=== PATIENT | male | born 1955 | race Caucasian/White ===

== ENCOUNTER 2017-11-29 09:00 | Emergency (ER) | payer OTHER ==
--- NOTE | 2017-11-29 09:50 | EDM.PDOC ---
ED HPI GENERAL MEDICAL PROBLEM - General Chief Complaint: Abdominal Pain Stated Complaint: SENT BY CLINIC- AORTIC ANEURYSM Time Seen by Provider: 11/29/17 09:23 Source of Information: Reports: Patient History Limitations: Reports: No Limitations - History of Present Illness INITIAL COMMENTS - FREE TEXT/NARRATIVE: The patient states that he was diagnosed with a AAA by MRI on 11/09/2017. He does not recall the diameter found, but a subsequent ultrasound of the aorta on 11/27/2017 found the diameter to be 7 cm. The patient was then seen in [place] on 11/28/2017, where a CT scan found the diameter to be over [address] Marinelli, the vascular surgeon, recommended elective AAA repair with a customized graft, which is currently being manufactured. The patient is scheduled to go to the OR on 12/10/2017. The patient states that yesterday, 11/28/2017, after he was seen in [place], he fell approximately 5 feet onto his back on gravel. He has chronic back pain, made worse by the fall. He is under the care of a pain management physician, who is currently prescribing a topical cream for his pain. He also reports pain in his chest and abdomen - the patient points with one finger to a discrete area a few centimeters above his umbilicus - last night, worse this morning. It is a dull ache. It is constant, although made worse if he exhales. He has not noticed any difference with bodily position. No recent nausea, vomiting, constipation, or diarrhea. No urinary symptoms. The patient reported this to either Dr. Albert's or Dr. Marinelli's nurse, who recommended that he come to the ED to make sure that he does not have a leaking or ruptured AAA. The patient's PCP is Dr. Delcid. Upper Abdominal Pain Score (Numeric/FACES): 2 - Related Data Allergies Allergy/AdvReac Type Severity Reaction Status Date / Time No Known Allergies Allergy Verified 11/29/17 09:10 Past Medical History HEENT History: Reports: Allergic Rhinitis, Impaired Vision Cardiovascular History: Reports: Aneurysm (AAA), High Cholesterol Respiratory History: Reports: Sleep Apnea (nightly CPAP 19) Musculoskeletal History: Reports: Back Pain, Chronic, Osteoarthritis Psychiatric History: Reports: Anxiety Endocrine/Metabolic History: Reports: Obesity/BMI 30+ - Past Surgical History HEENT Surgical History: Reports: Oral Surgery (Uvuloplasty. Mandible plate.), Tonsillectomy GI Surgical History: Reports: Colonoscopy Musculoskeletal Surgical History: Reports: Other (See Below) Other Musculoskeletal Surgeries/Procedures:: Knee surgery and neck surgery Social & Family History - Tobacco Use Smoking Status *Q: Former Smoker Years of Tobacco use: 33 Packs/Tins Daily: 1 Month/Year Tobacco Last Used: Quit 2003 - Alcohol Use Alcohol Use History: No - Recreational Drug Use Recreational Drug Use: No - Living Situation & Occupation Living situation: Reports: , with Spouse Occupation: Employed (Maintenance) ED ROS GENERAL - Review of Systems Review Of Systems: ROS reveals no pertinent complaints other than HPI. ED EXAM, GENERAL - Physical Exam Exam: See Below Exam Limited By: No Limitations General Appearance: Alert, WD/WN, No Apparent Distress Eye Exam: Bilateral Eye: Normal Inspection Ears: Normal External Exam, Hearing Grossly Normal Nose: Normal Inspection, No Blood Throat/Mouth: Normal Inspection, Normal Lips, Normal Voice, No Airway Compromise Head: Atraumatic, Normocephalic Neck: Normal Inspection, Full Range of Motion Respiratory/Chest: No Respiratory Distress, Lungs Clear, Normal Breath Sounds, No Accessory Muscle Use Cardiovascular: Normal Peripheral Pulses, Regular Rate, Rhythm, No Gallop, No JVD, No Murmur, No Rub Peripheral Pulses: 4+: Radial (L), Radial (R) GI/Abdominal: Normal Bowel Sounds, Soft, Non-Tender, No Organomegaly, No Distention, No Abnormal Bruit, No Mass, Other (Obese) (Male) Exam: Deferred Rectal (Males) Exam: Deferred Back Exam: Normal Inspection, Full Range of Motion, NT Extremities: Normal Inspection, Normal Range of Motion, No Pedal Edema, Normal Capillary Refill Neurological: Alert, Oriented, Normal Cognition, No Motor/Sensory Deficits Psychiatric: Normal Affect Skin Exam: Warm, Dry, Intact, Normal Color, No Rash Course - Vital Signs Last Recorded V/S: Last Vital Signs Temp 36.3 C 11/29/17 09:05 Pulse 73 11/29/17 09:05 Resp 16 11/29/17 09:05 BP 159/113 H 11/29/17 09:05 Pulse Ox 97 11/29/17 09:05 - Re-Assessments/Exams Free Text/Narrative Re-Assessment/Exam: 11/29/17 09:45 The patient was sent to the ED by a nurse at either Dr. Albert's or Dr. Marinelli's office, after the patient fell at work yesterday, to make sure that he did not injure his AAA. On examination, the patient's abdomen is obese, soft , nontender, with normoactive bowel sounds, findings we would not expect if he had a leaking AAA. Clinically, I do not suspect a leaking AAA, however, in order to be certain, one would need to perform a CT scan of the abdomen and pelvis, which was offered to the patient. He declined, as he does not personally believe that he injured his AAA, either. Departure - Departure Time of Disposition: 09:47 Disposition: Home, Self-Care 01 Condition: Good Clinical Impression: Fall, AAA (abdominal aortic aneurysm) - Discharge Information Instructions: Abdominal Aortic Aneurysm Referrals: Vickey Delcid MD [Primary Care Provider] - Daniele Marinelli MD [Ordering Only Provider] - Forms: ED Department Discharge, ED Return to Work/School Form Additional Instructions: You were seen in the emergency room after falling at work yesterday, 11/28/2017, for evaluation of your AAA. On examination, there are no findings concerning for a leaking or ruptured AAA. A CT scan of the abdomen and pelvis was offered, but declined. You are being sent home with a note for work for light duty until you can undergo your AAA graft on 12/10/2017. If any other problems, please do not hesitate to return to the ER.
== END 2017-11-29 10:15 | disposition home or self-care (01) ==
LOC: JD.ED 09:00
DX: I71.4 Abdominal aortic aneurysm, without rupture (principal); E78.00 Pure hypercholesterolemia, unspecified; E66.9 Obesity, unspecified; W19.XXXA Unspecified fall, initial encounter; Z87.891 Personal history of nicotine dependence; Y99.0 Civilian activity done for income or pay; Z68.32 Body mass index [BMI] 32.0-32.9, adult
CPT/HCPCS: 99284

== ENCOUNTER 2018-02-07 23:33 | Emergency (ER) | payer OTHER ==
[2018-02-08] MEDS ORDERED: Lidocaine 1% 10 ML MDV INJECT ONE (00:12)
--- NOTE | 2018-02-08 00:13 | EDM.PDOC ---
ED HPI GENERAL MEDICAL PROBLEM - General Chief Complaint: Head Injury Stated Complaint: FELL OUT OF BED AND GASHED HEAD Time Seen by Provider: 02/08/18 00:11 Source of Information: Reports: Patient History Limitations: Reports: No Limitations - History of Present Illness INITIAL COMMENTS - FREE TEXT/NARRATIVE: 62-year-old male presents the ED with a closed head injury. This occurred while he was asleep. He reports this is happened twice previously in the last year and a half weeks parents is a bad dream and suddenly ends up falling out of bed. He remembers once reaching out for something and then falling off the bed. Tonight he awoke on the floor. It appears that he struck his left frontal scalp in the midline on something sharp like a handle of the night table. His heard him fall in turn the lights on immediately. Took a while for her to get him up and standing but he could walk and talk within 2-3 minutes of the injury. There was no evidence that he has suffered a seizure. Of note all 3 times that this is occurred it's been when he's not using his CPAP machine. It may be that he is suffering inspiratory distress with a boost of adrenaline causing him to suddenly awakened from sleep and falling. At any rate he has a deep Y-shaped laceration to his frontal scalp that is actively bleeding. It will require lab suture repair. He states his tetanus toxoid is up-to-date. He denies any other injuries. States he landed on his chest but has no rib pain arm pain etc. He has minimal headache at this time no nausea or vomiting. He does take a baby aspirin once daily Onset: Today Onset Date: 02/07/18 Onset Time: 23:20 Duration: Minutes: Location: Reports: Head Quality: Reports: Ache Severity: Mild Improves with: Reports: None Worsens with: Reports: None Context: Reports: Other (Reportedly fell out of bed while asleep. Struck something sharp to cause a jagged laceration and almost in a Y-shaped mid frontal scalp with active bleeding.). Denies: Activity, Exercise, Lifting, Sick Contact, Trauma Associated Symptoms: Denies: Confusion, Chest Pain, Cough, cough w sputum, Diaphoresis, Fever/Chills, Headaches, Loss of Appetite, Malaise, Nausea/Vomiting , Rash, Seizure, Shortness of Breath, Syncope Treatments AUTOMOTIVE SERVICE WRITER: Reports: Other (see below) (None.) Head Pain Score (Numeric/FACES): 7 - Related Data Allergies Allergy/AdvReac Type Severity Reaction Status Date / Time mold Allergy Intermediate Rash Verified 02/07/18 23:48 hydrocodone Allergy Drowsiness Verified 02/07/18 23:49 Home Meds: Home Meds Aspirin [Halfprin] 1 tab PO DAILY 02/08/18 [History] Past Medical History HEENT History: Reports: Allergic Rhinitis, Impaired Vision Cardiovascular History: Reports: Aneurysm, High Cholesterol Other Cardiovascular History: AAA Respiratory History: Reports: Sleep Apnea (Uses his CPAP machine most nights.) Musculoskeletal History: Reports: Back Pain, Chronic, Osteoarthritis Other Musculoskeletal History: Degenerative arthritis in spine Neurological History: Reports: Migraines Psychiatric History: Reports: Anxiety Endocrine/Metabolic History: Reports: Obesity/BMI 30+ - Past Surgical History HEENT Surgical History: Reports: Oral Surgery, Tonsillectomy Cardiovascular Surgical History: Reports: AAA Repair, Coronary Artery Stent GI Surgical History: Reports: Colonoscopy Musculoskeletal Surgical History: Reports: Other (See Below) Other Musculoskeletal Surgeries/Procedures:: Knee surgery and neck surgery Social & Family History - Tobacco Use Smoking Status *Q: Never Smoker - Caffeine Use Caffeine Use: Reports: None - Recreational Drug Use Recreational Drug Use: No - Living Situation & Occupation Living situation: Reports: , with Spouse Occupation: Employed (Maintenance) ED ROS GENERAL - Review of Systems Review Of Systems: See Below Constitutional: Denies: Fever, Chills, Malaise, Weakness, Fatigue, Decreased Appetite, Weight Loss HEENT: Denies: Glasses, Hearing Loss, Nosebleed, Nose Pain, Rhinitis, Sinus Problem, Throat Pain, Throat Swelling, Vertigo Respiratory: Reports: Other (Has known sleep apnea syndrome and is supposed to be using for sleep CPAP sheen every night but often goes without. Snores badly. His platelet a uvuloplasty and also chin lift etc. without success). Denies: Shortness of Breath Cardiovascular: Reports: No Symptoms Endocrine: Reports: No Symptoms GI/Abdominal: Reports: No Symptoms : Reports: Frequency, Other (Has known BPH.) Musculoskeletal: Reports: Back Pain, Joint Pain (Knees and hips at times) Skin: Reports: Other (Currently has a laceration frontal scalp) Neurological: Reports: No Symptoms ED EXAM, HEAD INJURY - Physical Exam Exam: See Below Exam Limited By: No Limitations General Appearance: Alert, WD/WN, No Apparent Distress Head: Scalp Lacerations (He has a jagged Y-shaped laceration approximately 3.5 cm in total length --midfrontal scalp.), Scalp Tenderness, Active Bleeding. No : Wang's Sign, Flap, Facial Abrasions, Facial Ecchymosis, Facial Lacerations, Facial Swelling, Sinus Tenderness, Facial Tenderness Nexus Criteria: No: Painful Distraction Injuries Eyes: Bilateral Eye: Normal Inspection Throat/Mouth: Normal Inspection, Normal Lips, Normal Teeth, Normal Oropharynx Neck: Limited Range of Motion, Other (States his neck is always stiff and sore no worse than usual.) Respiratory: No Respiratory Distress, Lungs Clear, Normal Breath Sounds, No Accessory Muscle Use, Chest Non-Tender, Other (No evidence of any rib injury on firm palpation of his chest wall and sternum.) GI/Abdominal Exam: Normal Bowel Sounds, Soft, Non-Tender, No Organomegaly, No Abnormal Bruit, No Mass, Pelvis Stable Back Exam: Normal Inspection, Full Range of Motion. No: CVA Tenderness (L), CVA Tenderness (R) Extremities: Normal Inspection, Normal Range of Motion, Non-Tender, No Pedal Edema, Other (Full range of motion of his upper extremities and he could walk with no difficulty.) Neurologic: corrections sergeant II-XII nml As Tested, No Motor/Sensory Deficits, Alert, Normal Mood/Affect, Oriented x 3 Skin: Normal Color, Warm/Dry - [place] Coma Score Best Eye Response ([place]): (4) Open Spontaneously Best Verbal Response ([place]): (5) Oriented Best Motor Response ([place]): (6) Obeys Commands [place] Total: 15 Course - Vital Signs Last Recorded V/S: Last Vital Signs Temp 36.3 C 02/07/18 23:43 Pulse 70 02/07/18 23:43 Resp 18 02/07/18 23:43 BP 156/98 H 02/07/18 23:43 Pulse Ox 97 02/07/18 23:43 - Orders/Labs/Meds Meds: Medications Discontinued Medications Generic Name Dose Route Start Last Admin Trade Name Freq PRN Reason Stop Dose Admin Lidocaine HCl 10 ml 02/08/18 00:12 02/08/18 00:44 Xylocaine 1% INJECT 02/08/18 00:13 10 ml ONETIME ONE Administration - Radiology Interpretation Free Text/Narrative:: 62-year-old male presents to the ED after falling from bed from being asleep. It 's unclear what has transpired although it is happened twice in the last year. Usually can remember a bad dream that helped precipitate the fall. All 3 times it has occurred is been when he is not using his CPAP machine suggesting there is some correlation. At any rate he has suffered a closed head injury with a Y- shaped laceration mid frontal scalp. There is a very active bleeding suggesting arterial bleeding from the wound. He is on a baby aspirin once daily. His tetanus toxoid apparently is up-to-date. No other injuries were identified on examination. Plan wound was to be sutured under local anesthetic. - Re-Assessments/Exams Free Text/Narrative Re-Assessment/Exam: 02/08/18 01:05: Laceration was sutured under local anesthetic using lidocaine 1% . 15 sutures are placed in all. Arterial bleeding brought under control with sutures. Plan is to daily cleanse the wound with soap and water. Showering is okay. He'll then apply topical antibiotic such as bacitracin or Polysporin to the wound at least once daily. Sutures will need to be removed in 10 days' time. He develops any headache nausea or vomiting. Departure - Departure Time of Disposition: 01:11 Disposition: Home, Self-Care 01 Condition: Fair Clinical Impression: Central sleep apnea syndrome Laceration of scalp Qualifiers: Encounter type: initial encounter Qualified Code(s): S01.01XA - Laceration without foreign body of scalp, initial encounter Fall as cause of accidental injury at home as place of occurrence Qualifiers: Encounter type: initial encounter Qualified Code(s): W19.XXXA - Unspecified fall, initial encounter; Y92.009 - Unspecified place in unspecified non- institutional (private) residence as the place of occurrence of the external cause - Discharge Information Instructions: Laceration Care, Adult Referrals: Vickey Delcid MD [Primary Care Provider] - Forms: ED Department Discharge Additional Instructions: Evaluation in the emergency room tonight in regards to all out of bed. Presumably a bad dream occurred which created an adrenaline surge and cause you to jump up out of bed causing you to fall. Unfortunately you struck the anterior frontal aspect of your scalp with resultant Y-shaped laceration. The laceration bled extensively even in the ED indicating an arterial injury had occurred. Wound was closed under local anesthetic using lidocaine 1% and 15 stitches were placed. Treatment at home is to daily cleanse the area with soap and water. Showering is okay. Then apply topical antibiotic such as bacitracin or Polysporin to the wound once daily. Sutures will need to be removed in 10 days' time. Follow up sooner with a physician if any signs of infection develop such as redness swelling or obvious pus. Also need to return to the ED if you develop an increasing headache over the next 12-24 hours or any nausea vomiting occurs. This is felt unlikely as it appears that you struck something sharp which cause a laceration versus a severe shear force blow.
== END 2018-02-08 01:20 | disposition home or self-care (01) ==
LOC: JD.ED 23:33
DX: S01.81XA Laceration without foreign body of other part of head, initial encounter (principal); G47.31 Primary central sleep apnea; E78.00 Pure hypercholesterolemia, unspecified; F41.9 Anxiety disorder, unspecified; Z88.5 Allergy status to narcotic agent; Z79.82 Long term (current) use of aspirin; W06.XXXA Fall from bed, initial encounter
CPT/HCPCS: 12002; 12013; 99283-25

== ENCOUNTER 2025-05-05 10:50 | Emergency (ER) | payer OTHER, MEDICARE ==
[2025-05-05 11:29] LABS: BASOPHILS ABSOLUTE AUTO 0.1 K/mm3 (0.0-0.2); BASOPHILS PERCENT AUTO 0.9 % (0.0-1.0); EOSINOPHILS ABSOLUTE AUTO 0.2 K/mm3 (0.0-0.4); EOSINOPHILS PERCENT AUTO 2.8 % (0.0-6.0); IMMATURE GRAN ABSOLUTE AUTO 0.02 K/mm3 (0.00-0.05); IMMATURE GRAN PERCENT AUTO 0.3 % (0.0-0.4); LYMPHOCYTES ABSOLUTE AUTO 1.9 K/mm3 (1.0-4.8); LYMPHOCYTES PERCENT AUTO 29.4 % (24.0-44.0); MEAN PLATELET VOLUME 10.7 fl (9.4-12.4); MONOCYTES ABSOLUTE AUTO 0.5 K/mm3 (0.0-0.8); MONOCYTES PERCENT AUTO 8.3 % (0.0-8.0); NEUTROPHILS ABSOLUTE AUTO 3.7 K/mm3 (1.8-7.7); NEUTROPHILS PERCENT AUTO 58.3 % (41.0-71.0); NRBC ABSOLUTE 0.00 (0.00-0.02); NRBC PERCENT 0.0 % (0.0-0.2); PLATELET COUNT,PLT 155 K/mm3 (150-400); RED BLOOD CELL COUNT 4.67 M/mm3 (4.52-5.90); WHITE BLOOD CELL COUNT,WBC 6.39 K/mm3 (3.9-11.3)
[2025-05-05 11:47] LABS: A/G RATIO 1.3 (1-2); ALANINE AMINOTRANSFERASE,ALT 43.0 U/L (16-63); ASPARTATE AMNIOTRANSFERASE,AST 25.0 U/L (15-37); BILIRUBIN TOTAL 1.0 mg/dL (0.2-1.0); BLOOD UREA NITROGEN,BUN 17.0 mg/dL (7-18); CARBON DIOXIDE,CO2 29.0 mEq/L (21-32); CHLORIDE,CL 104.0 mEq/L (98-107); CREATININE 1.3 mg/dL (0.7-1.3); EST CRCL DRUG DOSING (CG) 57.92 mL/min; ESTIMATED GFR 60.0 mL/min (>60); GLUCOSE RANDOM 144.0 mg/dL (70-99); POTASSIUM,K 4.1 mEq/L (3.5-5.1); PROTEIN TOTAL,TP 6.6 g/dl (6.4-8.2); SODIUM,NA 140.0 mEq/L (136-145); TROPONIN I HIGH SENSITIVITY 9.0 pg/mL (<=76); TSH 2.09 uIU/mL (0.358-3.74)
== END 2025-05-05 14:26 | disposition home or self-care (01) ==
LOC: JD.ED 10:50
DX: I95.9 Hypotension, unspecified (principal); Z88.5 Allergy status to narcotic agent; Z91.048 Other nonmedicinal substance allergy status; Z79.82 Long term (current) use of aspirin; Z79.899 Other long term (current) drug therapy; Z79.84 Long term (current) use of oral hypoglycemic drugs
CPT/HCPCS: 36415; 80053; 83735; 83880; 84443; 84484; 85025; 93005; 96360; 96361; 99285; J7030; 93010; 99283